=== PATIENT | male | born 1985 | race Caucasian/White ===

== ENCOUNTER 2022-03-07 14:22 | Emergency (ER) | payer SELFPAY ==
[2022-03-07 14:40] VITALS: BP 143/92; PULSE 89; RESP 16; TEMP 36.3; O2SAT 97
--- NOTE | 2022-03-07 14:44 | ED.MALEGU ---
HPI - Male Genitourinary General Chief complaint: Urogenital-Male Stated complaint: possible STI Source: patient Mode of arrival: ambulatory Limitations: no limitations History of Present Illness HPI Narrative: patient presents today a symptomatic, but has concerns that he may have contracted an STI from his girlfriend that he believes some cheated on him. Otherwise there is no rash no dysuria no penile discharge no fever chills no flank pain no hematuria no nausea vomiting. Related Data Home Medications Medication Instructions Recorded Confirmed No Home Medications 03/07/22 03/07/22 Allergies Allergy/AdvReac Type Severity Reaction Status Date / Time No Known Allergies Allergy Verified 03/07/22 14:47 Review of Systems Review of Systems: All systems reviewed & are unremarkable except as noted in HPI and below PMFSH Past Medical History Medical History Patient denies medical problems Exam Const: General: healthy appearing and no acute distress HENMT: Head: normal to inspection General nose exam: Normal external nose present Mouth: Yes Normal oral and palatal mucosa present Eyes: Conjunctivae: conjunctivae normal Pupils: Equal, round and reactive pupils present EOM: EOMs intact bilaterally Neck: Neck: normal visual inspection, no lymphadenopathy and no meningeal signs Chest: Chest palpation & inspection: normal inspection of the chest Resp: Effort & Inspection: normal respiratory effort Cardio: Rate: regular rate Rhythm: regular rhythm GI: GI Palp: Yes Soft to palpation Auscultation: normal bowel sounds : General: Yes bladder normal to palpation Urinary Catheter: Urinary Catheter: patent and draining Back/Spine/Pelvis: Back: no CVA tenderness Skin: General skin exam: normal color Rashes: no rashes Wounds: no wounds Neuro: General: patient oriented x3, moves all extremities and no meningeal signs Psych: Mental Status: mental status grossly normal Affect: normal affect Course Course Emergency Course: patient received a g ceftriaxone IM and a g of Zithromax p.o., G C urine test along with HIV and RPR was obtained. Critical Care Time Critical Care Time Critical Care Time: No Discharge Plan Discharge Clinical Impression: Potential exposure to STD Patient Disposition: Home, Self-Care Condition: Stable Instructions: Antibiotic Form, Sexually Transmitted Diseases (ED), Safe Sex Practices for Adolescents (ED) Additional Instructions: follow-up with primary if symptoms should occur. Follow-up/Referrals: UNKNOWN,DOCTOR [Primary Care Provider] - Time of Disposition: 14:47
[2022-03-07] MEDS: AZITHROMYCIN 250 MG TABLET 1000 MG PO (15:09)
[2022-03-07 15:20] VITALS: BP 143/92; PULSE 89; RESP 16; TEMP 36.4; O2SAT 97
[2022-03-07 15:27] LABS: HIV 1 P24 AG Negative (Negative); HIV 1/2 AB Negative (Negative)
[2022-03-10 15:26] LABS: RPR Screen Non-Reactive (Non-Reactive)
== END 2022-03-07 15:21 | disposition home or self-care (01) ==
PROVIDERS: Emergency Provider Emergency Medicine
DX: Z04.89 Encounter for examination and observation for other specified reasons (principal)
CPT/HCPCS: 36415; 86592; 86703; 87491; 87591; 96372; 99283; A9270; J0696